=== PATIENT | male | born 1970 ===

== ENCOUNTER 2017-10-04 18:01 | Emergency (ER) | payer SELFPAY ==
[2017-10-04] MEDS ORDERED: NACL 0.9% 1000 ML 2,000 ML ONE (18:05)
[2017-10-04] MEDS ORDERED: MORPHINE IV ONE (18:07)
[2017-10-04] MEDS ORDERED: BOOSTRIX IM ONE (18:07)
[2017-10-04] MEDS ORDERED: ZOFRAN IV ONE (18:07)
[2017-10-04] MEDS ORDERED: ceFAZolin 1 GM in NACL 0.9% 20 ML IV SCH (18:15)
[2017-10-04 18:17] LABS: Basophils # (Auto) 0.1 K/mm3 (0.0-0.1); Basophils % (Auto) 0.8 % (0.0-1.8); Eosinophils # (Auto) 0.1 K/mm3 (0.0-0.4); Eosinophils % (Auto) 1.3 % (0.0-4.3); Hematocrit 40.4 % (35.5-45.6); Hemoglobin 13.9 gm/dl (11.8-15.2); Lymphocytes # (Auto) 2.9 K/mm3 (1.2-5.4); Mean Corpuscular HGB Conc 34 % (32-34); Mean Corpuscular Hemoglobin 28 pg (28-32); Mean Corpuscular Volume 82 fl (84-94); Monocytes # (Auto) 0.7 K/mm3 (0.0-0.8); Monocytes % (Auto) 8.4 % (0.0-7.3); Platelet Count 307 K/mm3 (140-440); Red Blood Count 4.93 M/mm3 (3.65-5.03); Red Cell Distribution Width 13.2 % (13.2-15.2)
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
[2017-10-04] MEDS ORDERED: NACL 0.9% 1000 ML 1,000 ML IV ONE (18:27)
[2017-10-04 18:29] LABS: INR 0.95 (0.87-1.13); Partial Thromboplastin Time 26.8 Sec. (24.2-36.6)
[2017-10-04 18:37] LABS: Alanine Aminotransferase 20 units/L (7-56); Albumin 4.4 g/dL (3.9-5); BUN/Creatinine Ratio 19; Blood Urea Nitrogen 17 mg/dL (9-20); Calcium 9.5 mg/dL (8.4-10.2); Hemolysis Index 3
[2017-10-04 19:29] VITALS: BP 134/62
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
[2017-10-04] MEDS ORDERED: XYLOCAINE 1%/ EPI 1:100,000 INFILTRATI ONE (20:16)
[2017-10-04] MEDS ORDERED: MARCAINE 0.5% 30 ML INFILTRATI ONE (20:16)
[2017-10-04] MEDS ORDERED: NACL 0.9% 500 ML IR ONE ×2 (20:17→20:30)
[2017-10-04] MEDS ORDERED: SUBLIMAZE IV ONE (20:23)
[2017-10-04] MEDS ORDERED: MARCAINE 0.5% INFILTRATI ONE (21:27)
[2017-10-04] MEDS ORDERED: TRIPLE ANTIBIOTIC TP ONE ×2 (21:42→22:10)
== END 2017-10-04 22:12 | disposition home or self-care (01) ==
LOC: ED 18:01
DX: S86.922A Laceration of unspecified muscle(s) and tendon(s) at lower leg level, left leg, initial encounter (principal); S16.1XXA Strain of muscle, fascia and tendon at neck level, initial encounter; S70.02XA Contusion of left hip, initial encounter; S09.8XXA Other specified injuries of head, initial encounter; F17.200 Nicotine dependence, unspecified, uncomplicated; V49.09XA Driver injured in collision with other motor vehicles in nontraffic accident, initial encounter; Y93.89 Activity, other specified; Y92.89 Other specified places as the place of occurrence of the external cause; Y99.8 Other external cause status
CPT/HCPCS: 12005; 36415; 70450; 71045; 71250; 72125; 73502; 73552; 73590; 73620; 73706; 74177; 80053; 85025; 85610; 85730; 86850; 86900; 86901; 90471; 90715; 96361; 96374; 96375; 99284; G0480; J0690; J2270; J2405; J3010; J7030; Q9967; 80320; A6250

== ENCOUNTER 2018-07-05 15:14 | Emergency (ER) | payer SELFPAY ==
--- NOTE | 2018-07-05 15:19 | Emergency Department Report ---
Blank Doc - Documentation Documentation: This is a 48-year-old male that presents with right forearm erythema and pain x1 week. Stated has some purulent drainage noted today. Stated is UTD with tetanus Exam:erythema with tenderness with minimal induratoin and fluctuance. No severe swelling. This initial assessment diagnostic orders/clinical plan/treatment(s) is/are subject to change based on patient's health status, clinical progression and re- assessment by fellow clinical providers in the ED. Further treatment and workup at subsequent clinical providers discretion. Patient/guardians urged not to elope from ED s their condition may be serious if not clinically assessed and managed. Initial orders include: 1-patient sent to [facility] for further evaluation and treatment.
--- NOTE | 2018-07-05 19:46 | Emergency Department Report ---
- General Chief complaint: Skin/Abscess/Foreign Body Stated complaint: POSS STAPH INFECTION Time Seen by Provider: 07/05/18 15:16 Source: patient Mode of arrival: Ambulatory Limitations: No Limitations - History of Present Illness Initial comments: 48-year-old male to emergency Department complaining of wounds to his left right lower extremities been present for the last 3-4 days and progressively worsening. No discharge. Mild tenderness to the region. No significant swelling. Reports no known trauma. No fever, chills, sweats, chest pain, palpitations. Has a history of recurrent wound infection. States he may have, contact with staff Tetanus Up to Date: no Location: LLE, RLE Severity: mild Quality: constant Consistency: constant Improves with: none Worsens with: none Context: none Associated symptoms: denies other symptoms Treatments Prior to Arrival: none - Related Data Previous Rx's Medication Instructions Recorded Last Taken Type Cyclobenzaprine [Flexeril] 10 mg PO TID PRN #14 tablet 10/04/17 Unknown Rx HYDROcodone/APAP 5-325 [[place] 1 - 2 each PO Q6HR PRN #14 tablet 10/04/17 Unknown Rx 5/325] Ibuprofen [Motrin 800 MG tab] 800 mg PO Q8HR PRN #20 tablet 10/04/17 Unknown Rx cephALEXin [Keflex] 500 mg PO Q6HR #40 capsule 10/04/17 Unknown Rx Chlorhexidine Gluconate [Hibiclens] 10 ml TP BID #240 liquid 07/05/18 Unknown Rx Mupirocin [Bactroban 2%] 15 applic TP TID #15 gm 07/05/18 Unknown Rx Sulfamethoxazole/Trimethoprim 1 each PO BID #20 tablet 07/05/18 Unknown Rx [Bactrim DS TAB] Allergies Allergy/AdvReac Type Severity Reaction Status Date / Time No Known Allergies Allergy Verified 10/04/17 19:12 Abscess Boil HPI - HPI Chief Complaint: Skin/Abscess/Foreign Body Stated Complaint: POSS STAPH INFECTION Time Seen by Provider: 07/05/18 15:16 Home Medications: Previous Rx's Medication Instructions Recorded Last Taken Type Cyclobenzaprine [Flexeril] 10 mg PO TID PRN #14 tablet 10/04/17 Unknown Rx HYDROcodone/APAP 5-325 [[place] 1 - 2 each PO Q6HR PRN #14 tablet 10/04/17 Unknown Rx 5/325] Ibuprofen [Motrin 800 MG tab] 800 mg PO Q8HR PRN #20 tablet 10/04/17 Unknown Rx cephALEXin [Keflex] 500 mg PO Q6HR #40 capsule 10/04/17 Unknown Rx Chlorhexidine Gluconate [Hibiclens] 10 ml TP BID #240 liquid 07/05/18 Unknown Rx Mupirocin [Bactroban 2%] 15 applic TP TID #15 gm 07/05/18 Unknown Rx Sulfamethoxazole/Trimethoprim 1 each PO BID #20 tablet 07/05/18 Unknown Rx [Bactrim DS TAB] Allergies/Adverse Reactions: Allergies Allergy/AdvReac Type Severity Reaction Status Date / Time No Known Allergies Allergy Verified 10/04/17 19:12 ED Review of Systems ROS: Stated complaint: POSS STAPH INFECTION Other details as noted in HPI Constitutional: denies: chills, fever Eyes: denies: eye pain, eye discharge, vision change ENT: denies: ear pain, throat pain Respiratory: denies: cough, shortness of breath, wheezing Cardiovascular: denies: chest pain, palpitations Endocrine: no symptoms reported Gastrointestinal: denies: abdominal pain, nausea, diarrhea Genitourinary: denies: urgency, dysuria Musculoskeletal: denies: back pain, joint swelling, arthralgia Skin: change in color. denies: rash, lesions Neurological: denies: headache, weakness, paresthesias Psychiatric: denies: anxiety, depression Hematological/Lymphatic: denies: easy bleeding, easy bruising ED Past Medical Hx - Past Medical History Previous Medical History?: Yes Additional medical history: lyme disease, staph infections - Surgical History Past Surgical History?: No - Social History Smoking Status: Current Every Day Smoker Substance Use Type: Alcohol - Medications Home Medications: Home Medications Medication Instructions Recorded Confirmed Last Taken Type Cyclobenzaprine [Flexeril] 10 mg PO TID PRN #14 tablet 10/04/17 Unknown Rx HYDROcodone/APAP 5-325 [[place] 1 - 2 each PO Q6HR PRN #14 tablet 10/04/17 Unknown Rx 5/325] Ibuprofen [Motrin 800 MG tab] 800 mg PO Q8HR PRN #20 tablet 10/04/17 Unknown Rx cephALEXin [Keflex] 500 mg PO Q6HR #40 capsule 10/04/17 Unknown Rx Chlorhexidine Gluconate [Hibiclens] 10 ml TP BID #240 liquid 07/05/18 Unknown Rx Mupirocin [Bactroban 2%] 15 applic TP TID #15 gm 07/05/18 Unknown Rx Sulfamethoxazole/Trimethoprim 1 each PO BID #20 tablet 07/05/18 Unknown Rx [Bactrim DS TAB] ED Physical Exam - General Limitations: No Limitations General appearance: alert, in no apparent distress - Head Head exam: Present: atraumatic, normocephalic - Eye Eye exam: Present: normal appearance, PERRL, EOMI - ENT ENT exam: Present: mucous membranes moist - Neck Neck exam: Present: normal inspection - Respiratory Respiratory exam: Present: normal lung sounds bilaterally. Absent: respiratory distress - Cardiovascular Cardiovascular Exam: Present: regular rate, normal rhythm. Absent: systolic murmur, diastolic murmur, rubs, gallop - GI/Abdominal GI/Abdominal exam: Present: soft, normal bowel sounds. Absent: guarding, rebound, hyperactive bowel sounds, mass, hernia - Rectal Rectal exam: Present: deferred - Extremities Exam Extremities exam: Present: normal inspection, tenderness, other (bilateral erythematous ulcerative type lesions to the left and right lower extremity. No lymphangitis appreciated. Local cellulitis present. No wound discharge. No calf swelling. Pulses are 2+ no cyanosis, no clubbing.). Absent: normal capillary refill, calf tenderness - Back Exam Back exam: Present: normal inspection - Neurological Exam Neurological exam: Present: alert, oriented X3 - Psychiatric Psychiatric exam: Present: normal affect, normal mood - Skin Skin exam: Present: warm, dry, intact, normal color, erythema. Absent: rash, pallor, abrasion ED Course Vital Signs 07/05/18 15:18 Temperature 98.8 F Pulse Rate 98 H Respiratory 18 Rate Blood Pressure 127/81 O2 Sat by Pulse 99 Oximetry Critical care attestation.: If time is entered above; I have spent that time in minutes in the direct care of this critically ill patient, excluding procedure time. ED Disposition Clinical Impression: Wound, open, leg Disposition: DC-01 TO HOME OR SELFCARE Is pt being admited?: No Does the pt Need Aspirin: No Condition: Stable Instructions: Acute Wound Care (ED), Methicillin Resistant Staphylococcus Aureus (ED) Referrals: SUE LIRIANO MD [Primary Care Provider] - 3-5 Days
[2018-07-05 19:55] VITALS: BP 128/80
== END 2018-07-05 19:56 | disposition home or self-care (01) ==
LOC: ED 15:14
DX: S81.802A Unspecified open wound, left lower leg, initial encounter (principal); S81.801A Unspecified open wound, right lower leg, initial encounter; F17.200 Nicotine dependence, unspecified, uncomplicated; X58.XXXA Exposure to other specified factors, initial encounter; Y93.9 Activity, unspecified; Y99.8 Other external cause status; Y92.89 Other specified places as the place of occurrence of the external cause
CPT/HCPCS: 99282

== ENCOUNTER 2018-10-04 03:03 | Emergency (ER) | payer OTHER ==
[2018-10-04] MEDS ORDERED: IBUPROFEN PO ONE (03:29)
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
[2018-10-04 04:52] VITALS: BP 121/82
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
== END 2018-10-04 06:03 | disposition home or self-care (01) ==
LOC: ED 03:03
DX: S00.12XA Contusion of left eyelid and periocular area, initial encounter (principal); M54.40 Lumbago with sciatica, unspecified side; M25.552 Pain in left hip; M54.2 Cervicalgia; F17.200 Nicotine dependence, unspecified, uncomplicated; V89.2XXA Person injured in unspecified motor-vehicle accident, traffic, initial encounter; Y93.89 Activity, other specified; Y92.488 Other paved roadways as the place of occurrence of the external cause; Y99.8 Other external cause status
CPT/HCPCS: 70450; 72125; 72131; 99283

== ENCOUNTER 2019-04-15 23:50 | Emergency (ER) | payer SELFPAY ==
--- NOTE | 2019-04-16 00:21 | Emergency Department Report ---
- General Chief Complaint: Wound/Laceration Stated Complaint: LEG SORES Time Seen by Provider: 04/16/19 00:11 Source: patient Mode of arrival: Ambulatory Limitations: No Limitations - History of Present Illness Initial Comments: Patient is a 49-year-old male presents emergency room with complaints of sores to the anterior shins bilaterally that began a month ago. He states that last week there was some drainage present but it has since resolved. He denies any fever, chills, n/v. he does not report any CP, SOB, leg swelling. he denies hitting his legs on anything. Patient states that he does not have a primary care doctor and has never seen a wound clinic. - Related Data Previous Rx's Medication Instructions Recorded Last Taken Type Cyclobenzaprine [Flexeril] 10 mg PO TID PRN #14 tablet 10/04/17 Unknown Rx HYDROcodone/APAP 5-325 [[place] 1 - 2 each PO Q6HR PRN #14 tablet 10/04/17 Unknown Rx 5/325] Ibuprofen [Motrin 800 MG tab] 800 mg PO Q8HR PRN #20 tablet 10/04/17 Unknown Rx cephALEXin [Keflex] 500 mg PO Q6HR #40 capsule 10/04/17 Unknown Rx Chlorhexidine Gluconate [Hibiclens] 10 ml TP BID #240 liquid 07/05/18 Unknown Rx Ibuprofen [Motrin 800 MG tab] 800 mg PO Q8HR PRN #15 tablet 10/04/18 Unknown Rx Ibuprofen [Motrin 600 MG tab] 600 mg PO Q8H PRN #14 tablet 04/16/19 Unknown Rx Mupirocin [Bactroban 2% OINT] 15 applic TP TID #15 gm 04/16/19 Unknown Rx Sulfamethoxazole/Trimethoprim 1 each PO BID #20 tablet 04/16/19 Unknown Rx [Bactrim DS TAB] Allergies Allergy/AdvReac Type Severity Reaction Status Date / Time No Known Allergies Allergy Verified 10/04/17 19:12 ED Review of Systems ROS: Stated complaint: LEG SORES Other details as noted in HPI Comment: All other systems reviewed and negative ED Past Medical Hx - Past Medical History Previous Medical History?: No Additional medical history: lyme disease, staph infections - Surgical History Past Surgical History?: Yes Additional Surgical History: hand - Social History Smoking Status: Current Every Day Smoker Substance Use Type: None - Medications Home Medications: Home Medications Medication Instructions Recorded Confirmed Last Taken Type Cyclobenzaprine [Flexeril] 10 mg PO TID PRN #14 tablet 10/04/17 Unknown Rx HYDROcodone/APAP 5-325 [[place] 1 - 2 each PO Q6HR PRN #14 tablet 10/04/17 Unknown Rx 5/325] Ibuprofen [Motrin 800 MG tab] 800 mg PO Q8HR PRN #20 tablet 10/04/17 Unknown Rx cephALEXin [Keflex] 500 mg PO Q6HR #40 capsule 10/04/17 Unknown Rx Chlorhexidine Gluconate [Hibiclens] 10 ml TP BID #240 liquid 07/05/18 Unknown Rx Ibuprofen [Motrin 800 MG tab] 800 mg PO Q8HR PRN #15 tablet 10/04/18 Unknown Rx Ibuprofen [Motrin 600 MG tab] 600 mg PO Q8H PRN #14 tablet 04/16/19 Unknown Rx Mupirocin [Bactroban 2% OINT] 15 applic TP TID #15 gm 04/16/19 Unknown Rx Sulfamethoxazole/Trimethoprim 1 each PO BID #20 tablet 04/16/19 Unknown Rx [Bactrim DS TAB] ED Physical Exam - General Limitations: No Limitations General appearance: alert, in no apparent distress - Head Head exam: Present: atraumatic, normocephalic - Eye Eye exam: Present: normal appearance - ENT ENT exam: Present: mucous membranes moist - Extremities Exam Extremities exam: Present: other (multiple areas of scabbing/dry sores present to the anterior shins, mild erythema, no increased warmth, no drainage, no LE edema bilaterally, 2+ dorsalis pedis bilaterally, sensation intact) - Neurological Exam Neurological exam: Present: alert, oriented X3 - Psychiatric Psychiatric exam: Present: normal affect, normal mood - Skin Skin exam: Present: warm, dry ED Course Vital Signs 04/16/19 00:06 Temperature 98.1 F Pulse Rate 96 H Respiratory 20 Rate Blood Pressure 117/79 O2 Sat by Pulse 96 Oximetry ED Medical Decision Making - Medical Decision Making Patient is a 49-year-old male presents emergency room with complaints of sores to the anterior shins bilaterally that began a month ago. He states that last week there was some drainage present but it has since resolved. He denies any fever, chills, n/v. he does not report any CP, SOB, leg swelling. he denies hitting his legs on anything. Patient states that he does not have a primary care doctor and has never seen a wound clinic. Vitals are stable. On exam multiple areas of scabbing/dry sores present to the anterior shins, mild erythema, no increased warmth, no drainage, no LE edema bilaterally, 2+ dorsalis pedis bilaterally, sensation intact. Possible vascular deficiency present due to skin changes on the anterior shins. Patient still has palpable pulse and sensation intact. Appears patient has an early cellulitis. Will place patient on antibiotics ointment, oral antibiotics and ibuprofen for pain. Discussed possible vascular deficiency in the legs with patient and the importance of following up with a primary care doctor for further evaluation and management. pt verbalized understanding. advised pt to please use medication as prescribed. Please follow-up with a primary care doctor and a wound clinic in the next 2-3 days. Return to the emergency room for any new or worsening symptoms. Critical care attestation.: If time is entered above; I have spent that time in minutes in the direct care of this critically ill patient, excluding procedure time. ED Disposition Clinical Impression: Peripheral vascular disease, Sore on leg Cellulitis Qualifiers: Site of cellulitis: extremity Site of cellulitis of extremity: lower extremity Laterality: unspecified laterality Qualified Code(s): L03.119 - Cellulitis of unspecified part of limb Disposition: DC-01 TO HOME OR SELFCARE Is pt being admited?: No Does the pt Need Aspirin: No Condition: Stable Instructions: Cellulitis (ED), Peripheral Vascular Disorders (ED) Additional Instructions: Please use medication as prescribed. Please follow-up with a primary care doctor and a wound clinic in the next 2-3 days. Return to the emergency room for any new or worsening symptoms. Prescriptions: Sulfamethoxazole/Trimethoprim [Bactrim DS TAB] 1 each PO BID #20 tablet Mupirocin [Bactroban 2% OINT] 15 applic TP TID #15 gm Ibuprofen [Motrin 600 MG tab] 600 mg PO Q8H PRN #14 tablet PRN Reason: Pain Referrals: [facility] [Provider Group] - 2-3 Days TEDDY BRYANT MD [Staff Physician] - 2-3 Days [facility] [Outside] - 2-3 Days [facility] [Outside] - 2-3 Days [facility] [Outside] - 2-3 Days Time of Disposition: 00:21 Print Language: PUERT[place] RICAN
[2019-04-16 00:36] VITALS: BP 126/78
== END 2019-04-16 00:38 | disposition home or self-care (01) ==
LOC: ED 23:50
DX: L03.116 Cellulitis of left lower limb (principal); L03.115 Cellulitis of right lower limb; I73.9 Peripheral vascular disease, unspecified; L98.9 Disorder of the skin and subcutaneous tissue, unspecified; F17.200 Nicotine dependence, unspecified, uncomplicated; Z79.899 Other long term (current) drug therapy